=== PATIENT | female | born 1950 | race Caucasian/White ===

== ENCOUNTER 2022-06-14 06:35 | Day surgery (SDC) | payer OTHER, SELFPAY ==
[2022-06-09 09:29] VITALS: BMI 23.6
--- NOTE | 2022-06-11 08:06 | MHC.SHP ---
Pre-Procedural Eval Section A Date of Service: 06/11/22 The patient is an INPATIENT: No Changes since office visit: No Cold of Flu in the past 2 weeks, No New Medical Problems, No Changes in Medication and No Patient answered all questions The History & Physical has been completed within 30 days and I have reviewed it.: Yes Section B Chief Complaint: Age-related nuclear cataract, right eye Allergies: Allergies Allergy/AdvReac Type Severity Reaction Status Date / Time No Known Allergies Allergy Verified 06/09/22 09:22 Plan Diagnosis/Plan: Unchanged I have reviewed the history and physical and performed a pertinent physical examination on my patient. No changes have occurred unless specified. Time Spent With Patient Time: Total time managing care of this patient today ____ minutes.
[2022-06-14 06:54] VITALS: BP 136/77; PULSE 77; RESP 18; TEMP 36.1; O2SAT 97
[2022-06-14 06:55] LABS: Glucose, Whole Blood 192 mg/dL (60-115)
--- NOTE | 2022-06-14 07:00 | HO.ANESPROP2 ---
[facility] Past Medical History Medical History (Updated 06/09/22 @ 09:21 by Kristal Olivas RN) Arthritis Depression Diabetes Elevated cholesterol History of COVID-19 HTN (hypertension) Sciatica Thyroid cancer Urinary incontinence Family History Family history of problems with anesthesia: No Surgical History Surgical History (Updated 06/09/22 @ 09:21 by Kristal Olivas RN) H/O colonoscopy History of meniscectomy of left knee History of meniscectomy of right knee Hx of thyroidectomy Hx of tubal ligation History of Problems with Anesthesia: No Social History Social History Housing Other:: elderly housing complex Are you a primary health care sanitary technician to a significant other at home: No Do you presently have visiting nurse or other home services: No Patient Tobacco Use Status: Never used Tobacco Use of substances other than those prescribed or required for medical reasons: No Have you been hit, kicked, punched, or otherwise hurt by someone within the past year? If so, by whom?: No Are you DNR?: No Advance Directives: Yes (daughter is HCP) Advance Directives Information Provided: Yes Advance Directives on File: Yes Advance Directives Date on File: 07/11/07 Recently lost weight without trying: No Eating poorly because of decreased appetite: No Nutrition Risks: No Nutritional Risk Poor oral hygiene: Yes (multiple missing teeth-has only 2 teeth left) Meds Allergies Allergy/AdvReac Type Severity Reaction Status Date / Time empagliflozin AdvReac Vaginal Verified 06/11/22 10:56 [From Jardiance] Itching metformin AdvReac Diarrhea Verified 06/11/22 10:56 sitagliptin [From Januvia] AdvReac Unknown Verified 06/11/22 10:56 Active Medications: Current Medications Povidone Iodine (Povidone Iodine 5 % Ophth Soln 30 Ml Bottle) 1 appl EYE-RIGHT PREOP PRN PRN Reason: Pre-Op Surgical Implant Prophy Home Medications Medication Instructions Recorded Confirmed Last Taken Type atorvastatin 40 mg tablet 40 mg PO BEDTIME 06/09/22 06/09/22 Unknown History calcium carbonate 600 mg-vitamin 1 tab PO DAILY 06/09/22 06/09/22 Unknown History D3 5 mcg (200 unit) tablet cholecalciferol (vitamin D3) 10 10 mcg PO QAM 06/09/22 06/09/22 Unknown History mcg (400 unit) capsule (Vitamin D3) clonazepam 0.5 mg tablet 0.5 mg PO BEDTIME 06/09/22 06/09/22 Unknown History gabapentin 100 mg capsule 100 mg PO BEDTIME 06/09/22 06/09/22 Unknown History insulin glargine 100 unit/mL (3 10 unit subcut QAM 06/09/22 06/09/22 Unknown History mL) subcutaneous pen (Lantus Solostar U-100 Insulin) insulin glargine 100 unit/mL (3 44 unit subcut QPM 06/09/22 06/09/22 Unknown History mL) subcutaneous pen (Lantus Solostar U-100 Insulin) insulin lispro 100 unit/mL See Rx Instructions .Route .COMPLEX 06/09/22 06/09/22 Unknown History subcutaneous pen levothyroxine 100 mcg capsule 100 mcg PO DAILY 06/09/22 06/09/22 Unknown History lisinopril 10 mg tablet 10 mg PO QAM 06/09/22 06/09/22 Unknown History sertraline 50 mg tablet 50 mg PO BEDTIME 06/09/22 06/09/22 Unknown History tramadol 50 mg tablet 50 mg PO BID 06/09/22 06/09/22 Unknown History Exam Exam Date and Time: June 14, 2022 0700 Height,Weight and Vital Signs: Height 5 ft 5 in Weight 64.41 kg Last Vital Signs Temp 97.0 F 06/14/22 06:54 Pulse 77 06/14/22 06:54 Resp 18 06/14/22 06:54 BP 136/77 06/14/22 06:54 Pulse Ox 97 06/14/22 06:54 O2 Del Method 06/14/22 06:54 Pertinent Lab Results Pertinent Lab Results: Laboratory Tests 06/14/22 06:49 POC Glucose 192 H Airway Mallampati Class: II (Missing all teeth but 2 on bottom) TM Dist: >3cm Neck ROM: Full Heart: rrr Lungs: cta Assessment and Plan Assessment Anesthesia Assessment: Anesthesia Plan Discussed and Chart Reviewed Final Anesthetic Review Family History of Problems with Anesthesia: No History of Problems with Anesthesia: No NPO: Yes ASA Class: III Final Preanesthetic Review: No Changes in Pt Med Stat, Meds/Allgs Chart Reviewed and Consent Obtained/Reviewed Patient Risk: Intermediate Procedure Risk: Intermediate Anesthetic Plan Anesthetic Plan: MAC: Disposition: Standard PACU
[2022-06-14] MEDS: Tetracaine HCl/PF 0.5% Oph Sol 4 ML DROPS 1 DROP EYE-RIGHT (07:03)
[2022-06-14] MEDS: Tropicamide 1 % Ophth Sol 3 ML BTL 1 DROP EYE-RIGHT ×3 (07:03→07:08)
[2022-06-14] MEDS: Cyclopentolate 1 % Ophth Sol 2 ML DRPBTL 1 DROP EYE-RIGHT ×3 (07:05→07:09)
[2022-06-14] MEDS: Phenylephrine HCL 2.5% Oph SoL 2 ML BOTTLE 1 DROP EYE-RIGHT ×3 (07:05→07:09)
[2022-06-14] MEDS: Ketorolac Tromethamine 0.5% Op 5 ML DROPS 1 DROP EYE-RIGHT ×3 (07:06→07:08)
--- NOTE | 2022-06-14 08:07 | HO.PNOPHT ---
Ophthalmology Procedure Procedure Date of Service: 06/14/22 Ophthalmology Viscoelastic: Healdana Fuchst Dual Pack Pro Ophthalmology Lenses: TECNIS [id number] (22.5) Procedure Notes: PREOPERATIVE DIAGNOSIS: Decreased visual acuity right eye secondary to cataract POSTOPERATIVE DIAGNOSIS: Same PROCEDURE: Right cataract extraction with intraocular lens insertion SURGEON: Sreekanth Joaquni M.D. ANESTHESIA: Topical/MAC ESTIMATED BLOOD LOSS: None COMPLICATIONS: None After obtaining informed consent, the patient was brought to the operating room suite and placed in the supine position. After adequate sedation per anesthesia, topical drops of Tetracaine were given to the right eye. The eye was then prepped and draped in the usual sterile fashion. The operating room microscope was then positioned over the operative eye and a lid speculum placed. A paracentesis was created. Viscoelastic was then instilled into the anterior chamber. A three plane incision was then created temporally, utilizing a 2.85 mm keratome. Capsulotomy forceps were then utilized to create a circular tear capsulotomy. Hydrodissection and hydrodelineation were carried out until adequate mobilization of the nucleus occurred. Phacoemulsification was then utilized to remove the dense central nucleus followed by removal of the cortical material utilizing the automated aspiration irrigation unit. Viscoelastic was instilled into the posterior capsular bag followed by placement of a posterior chamber intraocular lens without difficulty. The residual Viscoelastic was then removed utilizing the automated IA machine. The wound was checked and found to be watertight. The patient tolerated the procedure well and the lid speculum was removed. Intracameral injection of Vigamox 0.1 mL followed by a subtenon injection of Kenalog-40 0.2 mL were administered. The patient will be seen in the a.m.
[2022-06-14 08:28] VITALS: BP 131/70; PULSE 80; RESP 12; TEMP 36.9; O2SAT 98
[2022-06-14 08:33] VITALS: BP 131/80; PULSE 78; RESP 18; TEMP 37; O2SAT 96
[2022-06-14 10:15] LABS: Glucose, Whole Blood 166 mg/dL (60-115)
== END 2022-06-14 08:43 | disposition home or self-care (01) ==
PROVIDERS: PCP Internal Medicine; Visit Provider Ophthalmology
PROC: (CPT 66985; principal; 2022-06-14 08:20)
DX: H25.11 Age-related nuclear cataract, right eye (principal); H54.7 Unspecified visual loss; H04.123 Dry eye syndrome of bilateral lacrimal glands; H35.09 Other intraretinal microvascular abnormalities; I10 Essential (primary) hypertension; E78.00 Pure hypercholesterolemia, unspecified; E11.9 Type 2 diabetes mellitus without complications; Z79.4 Long term (current) use of insulin; Z88.8 Allergy status to other drugs, medicaments and biological substances; Z79.899 Other long term (current) drug therapy
CPT/HCPCS: 66984; 82947; J2250; J3301; V2632